=== PATIENT | female | born 2000 | race African-American/Black ===

== ENCOUNTER 2019-01-03 02:50 | Emergency (ER) | payer MEDICAID ==
[~2019-01-03] VITALS: Ht 170.2 cm; Wt 160.0 kg
[2019-01-03 05:34] VITALS: BP 143/90
== END 2019-01-03 06:15 | disposition left against medical advice (07) ==
LOC: ER 02:50
DX: Z53.21 Procedure and treatment not carried out due to patient leaving prior to being seen by health care provider (principal)